=== PATIENT | female | born 1980 | race Caucasian/White ===

== ENCOUNTER 2021-03-03 08:55 | Emergency (ER) | payer OTHER ==
[~2021-03-03] VITALS: Ht 175.3 cm; Wt 104.3 kg
[2021-03-03] MEDS ORDERED: PROZAC40 MG PO (09:23)
[2021-03-03] MEDS ORDERED: DESYREL150 MG PO (09:23)
[2021-03-03] MEDS ORDERED: PROTONIX40 M2 PO (09:23)
[2021-03-03] MEDS ORDERED: KLONOPIN1 MG PO (09:23)
[2021-03-03] MEDS ORDERED: HYDROCODON-ACE1 EAC7 PO ×4 (09:24→10:59)
[2021-03-03 12:04] VITALS: BP 129/84
== END 2021-03-03 12:04 | disposition home or self-care (01) ==
LOC: ER 08:55
DX: S02.82XA Fracture of other specified skull and facial bones, left side, initial encounter for closed fracture (principal); S02.32XA Fracture of orbital floor, left side, initial encounter for closed fracture; Z90.49 Acquired absence of other specified parts of digestive tract; Z79.899 Other long term (current) drug therapy; W01.198A Fall on same level from slipping, tripping and stumbling with subsequent striking against other object, initial encounter; Y93.89 Activity, other specified; Y92.89 Other specified places as the place of occurrence of the external cause; Y99.8 Other external cause status